=== PATIENT | male | born 1940 | race Caucasian/White ===

== ENCOUNTER 2017-07-11 12:43 | Emergency (ER) | payer OTHER ==
[2017-07-11 15:15] LABS: ADD MAN DIFF? NO
[2017-07-11 15:16] LABS: WHITE BLOOD COUNT 7.8 10^3/ul (4.8-10.8)
[2017-07-11 15:16] LABS: BASOPHILS % 0.4 % (0.0-2.0); EOSINOPHILS # 0.3 10^3/ul (0.0-0.5); EOSINOPHILS % 3.5 % (0.0-7.0); HEMATOCRIT 44.9 % (42.0-52.0); HEMOGLOBIN 14.7 g/dl (14.0-18.0); LYMPHOCYTES # 2.2 10^3/ul (0.8-2.9); LYMPHOCYTES % 28.3 % (15.0-51.0); MEAN CORPUSCULAR HEMOGLOBIN 29.7 pg (29.0-33.0); MEAN CORPUSCULAR HGB CONC 32.7 g/dl (32.0-37.0); MEAN CORPUSCULAR VOLUME 90.7 fl (82.0-101.0); MEAN PLATELET VOLUME 10.8 fl (7.4-10.4); MONOCYTE # 0.7 10^3/ul (0.3-0.9); MONOCYTES % 9.5 % (0.0-11.0); NEUTROPHIL # 4.5 10^3/ul (1.6-7.5); PLATELET COUNT 241 10^3/UL (140-415); RED BLOOD COUNT 4.95 10^6/ul (4.70-6.10); RED CELL DISTRIBUTION WIDTH 13.1 % (11.5-14.5)
[2017-07-11] MEDS: LABETALOL HCL 20MG INJ IV (15:20)
[2017-07-11 15:38] LABS: ALANINE AMINOTRANSFERASE 13 IU/L (13-69); ALBUMIN 4.7 g/dl (3.3-4.9); ALKALINE PHOSPHATASE 75 IU/L (42-121); ANION GAP 19 (8-16); ASPARTATE AMINO TRANSFERASE 21 IU/L (15-46); BILIRUBIN,INDIRECT 0.6 mg/dl (0-1.1); BILIRUBIN,TOTAL 0.6 mg/dl (0.2-1.3); BLOOD UREA NITROGEN 43 mg/dl (7-20); CALCIUM 9.9 mg/dl (8.4-10.2); CARBON DIOXIDE 30 mmol/L (21-31); CHLORIDE 99 mmol/L (97-110); CREATININE 2.29 mg/dl (0.61-1.24); GLUCOSE 100 mg/dl (70-220); POTASSIUM 4.3 mmol/L (3.5-5.1); SODIUM 144 mmol/L (135-144); TOTAL PROTEIN 9.3 g/dl (6.1-8.1)
[2017-07-11 15:49] LABS: TROPONIN-I 0.022 ng/ml (0.00-0.12)
[2017-07-11 15:52] LABS: INR 0.94; PROTIME 12.7 Sec (11.9-14.9)
[2017-07-11 15:53] LABS: PARTIAL THROMBOPLASTIN TIME 33.4 Sec (25.0-35.0)
[2017-07-11] MEDS ORDERED: hydrALAzine 20 MG INJ (16:12)
[2017-07-11] MEDS: hydrALAzine 20 MG INJ IV (16:26)
[2017-07-11] MEDS: NIFEdipine (XL) 30 MG TAB PO (16:34)
[2017-07-11] MEDS: HYDROCODONE/APAP (5/325) TAB PO (16:37)
[2017-07-11] MEDS: ONDANSETRON (ODT) 4 MG TAB ODT (16:37)
== END 2017-07-11 17:38 | disposition home or self-care (01) ==
LOC: E/R 12:43
DX: I16.0 Hypertensive urgency (principal); R40.2252 Coma scale, best verbal response, oriented, at arrival to emergency department; I12.9 Hypertensive chronic kidney disease with stage 1 through stage 4 chronic kidney disease, or unspecified chronic kidney disease; N18.9 Chronic kidney disease, unspecified; R40.2142 Coma scale, eyes open, spontaneous, at arrival to emergency department; R40.2362 Coma scale, best motor response, obeys commands, at arrival to emergency department
CPT/HCPCS: 36415; 70450; 80048; 80076; 84484; 85025; 85610; 85730; 93005; 96374; 96375; 99285-25